=== PATIENT | female | born 1980 | race Caucasian/White ===

== ENCOUNTER 2023-01-25 17:13 | Emergency (ER) | payer BC, SELFPAY ==
[2023-01-25 17:17] VITALS: BP 138/96; PULSE 114; RESP 20; TEMP 36.8; O2SAT 98
--- NOTE | 2023-01-25 17:22 | ECG_ITS ---
Measurements Intervals [place] Rate: 112 P: 34 SC: 139 QRS: 19 QRSD: 74 T: 32 QT: 333 QTc: 455 Interpretive Statements SINUS TACHYCARDIA BASELINE ARTIFACT LOW QRS VOLTAGE IN PRECORDIAL LEADS [QRS DEFLECTION < 1.0 mV IN CHEST LEADS] RSR' V1/V2 BORDERLINE ECG NO PREVIOUS ECG AVAILABLE FOR COMPARISON Electronically Signed On 01-26-2023 14:33:14 CDT by Eduardo Kirk M.D.
[2023-01-25] MEDS: LORazepam INJ (*CRX) 2 MG/ML VIAL (17:30)
[2023-01-25 18:30] VITALS: BP 124/80; PULSE 86; RESP 16; TEMP 36.8; O2SAT 100
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
== END 2023-01-25 19:02 | disposition home or self-care (01) ==
LOC: ANHED 18:40
PROVIDERS: Emergency Provider Emergency Medicine
DX: F41.0 Panic disorder [episodic paroxysmal anxiety] (principal)
CPT/HCPCS: 93005; 96372; 99283; J2060